=== PATIENT | female | born 1995 | race Asian ===

== ENCOUNTER → 2017-04-11 | Outpatient (CLI) | payer OTHER ==
--- NOTE | 2017-04-11 10:21 | DIAGNOSTIC IMAGING REPORT ---
LEFT KNEE 4 OR MORE CLINICAL HISTORY: LEFT KNEE PAIN pain COMPARISON: None. DISCUSSION: The bones and joint spaces appear intact. There is no evidence of fracture, dislocation or bony disease. There is no evidence for soft tissue swelling. IMPRESSION: Negative study. The above report was generated using voice recognition software. It may contain grammatical, syntax or spelling errors. Electronically signed by: Darion Luciano M.D. 04/11/2017 10:19 AM Dictated Date/Time: 04/11/2017 10:19 AM
== END | disposition home or self-care (01) ==
LOC: C.RDSM 13:21
PROVIDERS: ATTEND Internal Medicine
DX: M25.569 Pain in unspecified knee (principal)

== ENCOUNTER → 2017-04-15 | Outpatient (CLI) | payer OTHER ==
--- NOTE | 2017-04-15 08:41 | DIAGNOSTIC IMAGING REPORT ---
LEFT LOWER EXT JOINT WITHOUT CLINICAL HISTORY: 21 years-old Female presenting with ANTERIOR LEFT KNEE PAIN. TECHNIQUE: Multisequence, multiplanar MR imaging of the left knee was performed without the use of intravenous contrast. IV contrast: None. COMPARISON: Correlation made to plain radiographs of the left knee from 04/11/2017. FINDINGS: Localizer images: Unremarkable. No bony edema. Articular cartilage intact. Medial and lateral menisci intact. Posterior and anterior cruciate ligaments intact. Medial collateral ligament intact. Lateral collateral ligament complex including the biceps femoris, fibular collateral ligament, popliteus tendon, and iliotibial band intact. Patellofemoral articulation normal without evidence of degenerative change. Medial and lateral retinacula intact. Trace prepatellar subcutaneous edema. Trace increased signal intensity in the distal quadriceps tendon and origin of the patellar tendon. Trace joint effusion. No popliteal cyst. Normal muscle bulk. Normal in signal intensity of the muscles. IMPRESSION: 1. Trace increased signal intensity in the distal quadriceps tendon and origin of the patellar tendon, which could suggest minimal tendinosis. No other abnormality. Electronically signed by: Roman Long M.D. 04/15/2017 8:39 AM Dictated Date/Time: 04/15/2017 8:33 AM
== END | disposition home or self-care (01) ==
LOC: C.MRI 07:32
PROVIDERS: ATTEND Internal Medicine
DX: M25.562 Pain in left knee (principal)